=== PATIENT | male | born 1995 | race Two or more races ===

== ENCOUNTER 2016-08-29 04:49 | Emergency (ER) | payer BC ==
--- NOTE | 2016-08-29 05:01 | EDPHY ---
H & P Stated Complaint: positive flu a , c/o cough mucus HPI/ROS: HPI CHIEF COMPLAINT: Cough, sore throat, recent influenza A diagnosis HISTORY OF PRESENT ILLNESS: This patient is a otherwise healthy 20-year-old male denies any significant medical or surgical history, presents emergency room for cough and sore throat. Patient tells me since Saturday he has been feeling ill. He had a influenza test performed at [facility] and was diagnosed with influenza a. He has been taking ibuprofen. Presents emergency room as he has been coughing and has pain in his chest when he coughs, he describes the cough as dry, nonproductive, he denies having a fever. He also tells me a sore throat. Denies nausea, vomiting, diarrhea. of note here in the emergency room he appears well nontoxic no acute distress. Afebrile. Past Medical History: Recently diagnosed with influenza a Past Surgical History: No surgical history Social History: [employer] student, denies drugs alcohol or tobacco products Family History: Noncontributory ROS REVIEW OF SYSTEMS: A comprehensive 10 point review of systems is otherwise negative aside from elements mentioned in the history of present illness. Exam Constitutional triage nursing summary reviewed, vital signs reviewed, awake/ alert. (noted to be slightly tachy) Eyes normal conjunctivae and sclera, EOMI, PERRLA. HENT posterior pharynx: mild erythema, uvula midline, no exudate, no significant swelling, normal inspection, atraumatic, moist mucus membranes, no epistaxis, neck supple/ no meningismus, no raccoon eyes. Respiratory clear to auscultation bilaterally, normal breath sounds, no respiratory distress, no wheezing. Cardiovascular rate normal, regular rhythm, no murmur, no edema, distal pulses normal. Gastrointestinal soft, non-tender, no rebound, no guarding, normal bowel sounds, no distension, no pulsatile mass. Genitourinary no CVA tenderness. Musculoskeletal no midline vertebral tenderness, full range of motion, no calf swelling, no tenderness of extremities, no meningismus, good pulses, neurovascularly intact. Skin pink, warm, & dry, no rash, skin atraumatic. Neurologic awake, alert and oriented x 3, AAOx3, moves all 4 extremities equally, motor intact, sensory intact, CN II-XII intact, normal cerebellar, normal vision, normal speech. Psychiatric normal mood/affect. Heme/Lymph/Immune no lymphadenopathy. Differential Diagnosis: includes but is not limited to in a particular order, influenza a, influenza a with pneumonia, upper respiratory tract infection, strep pharyngitis Medical Decision Making: this patient had a two view chest x-ray to rule out pneumonia also will have a rapid strep test. He is known to have influenza a recently diagnosed. Most likely cough and sore throat from having influenza a. Re-evaluation: ED x-ray chest two view: Negative for acute cardiopulmonary disease. Image interpreted by myself. Rapid strep is negative. [id number]: Re-evaluation at this time Source: Patient - Personal History Current Tetanus/Diphtheria Vaccine: Yes Current Tetanus Diphtheria and Acellular Pertussis (TDAP): Yes - Medical/Surgical History Hx Asthma: No Hx Chronic Respiratory Disease: No Hx Diabetes: No Hx Cardiac Disease: No Hx Renal Disease: No Hx Cirrhosis: No Hx Alcoholism: No Hx HIV/AIDS: No Hx Splenectomy or Spleen Trauma: No - Social History Smoking Status: Never smoked Constitutional: Initial Vital Signs Temperature (C) 37.4 C 08/29/16 04:53 Heart Rate 115 H 08/29/16 04:53 Respiratory Rate 18 08/29/16 04:53 Blood Pressure 116/66 08/29/16 04:53 O2 Sat (%) 95 08/29/16 04:53 O2 Delivery Mode Room Air Allergies/Adverse Reactions: No Known Allergies Allergy (Unverified 08/29/16 04:52) Home Medications: Medication Instructions Recorded Dexamethasone [Decadron 4 MG (*)] 4 mg PO DAILY #4 tab 08/29/16 Guaifenesin [Guaifenesin ER] 600 mg PO BID #14 tab.er.12h 08/29/16 Hydrocodone/APAP 5/325 [[place] 1 - 2 tab PO Q4H PRN #10 tab 08/29/16 5/325] Ibuprofen [Motrin (*)] 800 mg PO Q6-8PRN #14 tab 08/29/16 Medical Decision Making - Data Points Laboratory Results: 08/29/16 08/29/16 Unknown 05:07 Group A Strep Screen NEGATIVE (NEGATIVE) Group A Strep DNA Pending Medications Given: Discontinued Medications Acetaminophen/Hydrocodone Bitart ([place] 5/325) 1 tab PO EDNOW ONE Stop: 08/29/16 05:08 Last Admin: 08/29/16 05:10 Dose: 1 tab Departure - Departure Disposition: Home, Routine, Self-Care Clinical Impression: URI (upper respiratory infection), Influenza A Condition: Good Instructions: Pharyngitis (ED), Influenza (ED), Cold Symptoms (ED), Acute Cough (ED) Additional Instructions: 1. drink lots of fluids stay well-hydrated 2. take ibuprofen for pain control. For [place] few having severe pain. 3.Keep her fever down with Tylenol or ibuprofen. You may alternate these every 4-6 hours. Make sure drinking lots of fluids. 4.Return to the emergency room if he develops any worsening symptoms questions or concerns includes worsening cough, high fever, vomiting. Referrals: [place],. [Primary Care Provider] - As per Instructions Prescriptions: Dexamethasone [Decadron 4 MG (*)] 4 mg PO DAILY #4 tab Guaifenesin [Guaifenesin ER] 600 mg PO BID #14 tab.er.12h Ibuprofen [Motrin (*)] 800 mg PO Q6-8PRN #14 tab Hydrocodone/APAP 5/325 [[place] 5/325] 1 - 2 tab PO Q4H PRN #10 tab PRN Reason: Pain, Moderate
[2016-08-29] MEDS ORDERED: HYDROCODONE/APAP 5/325 TAB PO ONE (05:07)
[2016-08-29] MEDS ORDERED: IBUPROFEN 600 MG TAB PO ONE ×2 (06:26→06:29)
[2016-08-29 06:31] VITALS: BP 119/66; PULSE 89; RESP 16; TEMP 100.4; O2SAT 92
--- NOTE | 2016-08-29 08:32 | DX ---
Upright PA and Lateral Chest, 2 Views Total, at 4:44 a.m. Clinical History: 20-year-old male with a cough and influenza. ICD 10 Diagnostic Code: R05. Comparison Study: None. Findings: The lungs are clear except for some mild perihilar bronchial thickening. The cardiac and me diastinal silhouette size is normal. There is no focal alveolar consolidation, pleural effusion, negar pheral interstitial edema or pneumothorax. The osseous structures are age-appropriate. Impression: Features are consistent with reactive airways' disease and/or a virally-mediated bronchit is, with no focal pneumonia identified.
== END 2016-08-29 06:33 | disposition home or self-care (01) ==
DX: J10.1 Influenza due to other identified influenza virus with other respiratory manifestations (principal)